=== PATIENT | male | born 1955 | race Caucasian/White ===

== ENCOUNTER 2018-05-04 13:02 | Outpatient (CLI) | payer BC ==
--- NOTE | 2018-05-04 15:49 | RAD ---
CHEST PA AND LATERAL TWO VIEWS: History: 63-year-old male with history of pneumothorax following left rib fracture after a fall on 04-24-18 th chest wall injury. FINDINGS: Two views of the chest demonstrate heart size to be within normal limits. Mild bilateral hyperinflati on. No confluent pneumonia, overt edema, pleural effusion or pneumothorax. There is evidence for a no ndisplaced left 7th rib fracture laterally. IMPRESSION: No significant intrathoracic disease. Mild bilateral hyperinflation. No pneumothorax or pleural effus ion. Probable nondisplaced left 7th lateral rib fracture. POS: [facility]
--- NOTE | 2018-05-04 15:51 | RAD ---
AP AND OBLIQUE VIEWS LEFT RIBS: History: Pneumothorax follow up. FINDINGS: There are what may be areas of subtle rib fractures of the left 7th and 8th ribs. No pneumothorax is seen. IMPRESSION: Findings concerning for subtle left 7th and 8th rib fractures. POS: [facility]
== END 2018-05-04 13:03 | disposition home or self-care (01) ==
LOC: BICRAD 13:02
PROVIDERS: ATTEND Internal Medicine
DX: J93.9 Pneumothorax, unspecified (principal)
CPT/HCPCS: 71046

== ENCOUNTER 2020-04-03 14:42 | Outpatient (CLI) | payer BC ==
[~2020-04-03 14:42] MED LIST: Magnevist 469MG/ML 20 ML VIAL ONE
[2020-04-03 15:08] LABS: Estimated GFR-MDRD - POC Greater than 90
--- NOTE | 2020-04-03 16:26 | MRI ---
MULTI PARAMETRIC MRI OF THE PELVIS (PROSTATE) WITH AND WITHOUT IV CONTRAST WITH REVIEW ON INDEPENDENT 3-D WORKSTATION: HISTORY: Elevated PSA. Prostate biopsy performed 6-8 weeks ago. COMPARISON: None FINDINGS: PROSTATE: The prostate gland measures [id number] with a volume of 31 cc. PERIPHERAL ZONE: No focal abnormal areas of restricted diffusion is seen to suggest malignant process . TRANSITIONAL ZONE: No lentiform area of abnormally decreased T2 signal is seen to suggest a malignant process. No focal arterial enhancing mass is seen. Prostatic capsule is intact. The seminal vesicles are intact. LYMPH NODES: No lymphadenopathy is seen. SOFT TISSUES: Pelvic sidewall is normal. There is sigmoid diverticulosis. The urinary bladder wall is thickened with a right-sided small bladder diverticulum. BONES: No abnormal areas of signal replacement on the T1-weighted sequences are seen to suggest osseo us metastatic disease. IMPRESSION: PI-RADS 2: Low (clinically significant prostate cancer is unlikely to be present).
== END 2020-04-03 14:43 | disposition home or self-care (01) ==
LOC: TBSIIMAG 14:42
PROVIDERS: ATTEND Urology
DX: R97.20 Elevated prostate specific antigen [PSA] (principal)
CPT/HCPCS: 72197; 82565; A9579

== ENCOUNTER 2022-01-16 08:26 | Outpatient (CLI) | payer MEDICARE, BC ==
[2022-01-16] MEDS ORDERED: Gadobenate Dimeglumine 529 MG/1 ML (20ML VIAL) ONE (14:29)
== END 2022-01-16 08:27 | disposition home or self-care (01) ==
LOC: TBSIIMAG 08:26
PROVIDERS: ATTEND Urology
DX: C61 Malignant neoplasm of prostate (principal)
CPT/HCPCS: 72197; 82565; A9577

== ENCOUNTER 2024-05-21 09:54 | Outpatient (CLI) | payer MEDICARE ==
[2024-05-21 12:13] LABS: #Basophils 0.04 10x3/uL (0.0-0.2); %Basophils 0.6 % (0.0-1.0); %Eosinophils 1.8 % (0.0-10.0); %Lymphocytes 28.3 % (21.0-51.0); %Monocytes 9.1 % (0.0-10.0); %Neutrophils 59.9 % (42.0-75.0); Hematocrit 48.6 % (42.0-52.0); Hemoglobin 16.4 g/dL (14.0-18.0); Mean Corpuscular HGB CONC 33.7 g/dL (32.0-36.0); Mean Corpuscular Hemoglobin 30.3 pg (27.0-31.0); Mean Corpuscular Volume 89.7 fL (78.0-98.0); Platelet Count 191 10x3/uL (130-400); RBC Distribution Width 12.7 % (11.5-14.5); Red Blood Cell (RBC) Count 5.42 mill/uL (4.70-6.10)
[2024-05-21 12:17] LABS: Bacteria/HPF None Seen HPF (None Seen); Bilirubin Negative (Negative); Blood, Urine Negative (Negative); Clarity Clear (Clear); Glucose, Urine (Dipstick) Normal (Negative); Ketone, Urine Negative (Negative); Leukocyte Negative Leu/uL (Negative); Nitrite Negative (Negative); Protein, Urine (Dipstick) Negative (Neg-Trace); RBC/HPF 0-3 HPF (0-3); Specific Gravity, Urine 1.005 (1.002-1.036); Squamous Epithelial None Seen HPF (0-3); Urobilinogen Normal mg/dL (Less than 2); WBC/HPF None Seen HPF (0-3)
[2024-05-21 12:22] LABS: INR-International Normal Ratio 1.1; PTT 30.2 sec (22.9-36.1); Prothrombin Time 13.7 sec (12.0-14.7)
[2024-05-21 12:26] LABS: Anion Gap 12 mmol/L (10-20); BUN (Urea Nitrogen) 16 mg/dL (8.4-25.7); Calc. Creatinine Clearance 0 mL/min (70-130); Calcium 9.5 mg/dL (7.8-10.44); Carbon Dioxide 29 mmol/L (23-31); Chloride 101 mmol/L (98-107); Estimated GFR 95; Glucose 88 mg/dL (80-115); Potassium 3.7 mmol/L (3.5-5.1); Sodium 138 mmol/L (136-145)
== END 2024-05-21 09:55 | disposition home or self-care (01) ==
LOC: LABBT 09:54
PROVIDERS: ATTEND Urology
DX: Z01.818 Encounter for other preprocedural examination (principal); C61 Malignant neoplasm of prostate; N52.9 Male erectile dysfunction, unspecified; R39.12 Poor urinary stream; N40.1 Benign prostatic hyperplasia with lower urinary tract symptoms
CPT/HCPCS: 80048; 81001; 85025; 85610; 85730; 87086; 93005; 93010

== ENCOUNTER 2024-06-04 05:46 | Day surgery (SDC) | payer MEDICARE ==
[2024-05-21 10:14] VITALS: BMI 23.0
[2024-06-04] MEDS ORDERED: cefTRIAXone (ROCEPHIN) 1 GM VIAL ONE (06:49)
[2024-06-04] MEDS ORDERED: Sodium Chloride 0.9% 100 ML ONE (06:49)
[2024-06-04] MEDS ORDERED: PROPOFOL 20 ML ONE ×2 (07:14→08:21)
[2024-06-04] MEDS ORDERED: Midazolam HCl 2 mg/2 ml Vial ONE ×2 (07:15→08:21)
[2024-06-04] MEDS ORDERED: fentaNYL 50 mcg/mL 1 mL Vial ONE ×2 (07:49→08:21)
[2024-06-04] MEDS ORDERED: ePHEDrine Sulfate 50 MG/10 ML VIAL ONE (07:57)
== END 2024-06-04 09:20 | disposition home or self-care (01) ==
LOC: SDC 05:46
PROVIDERS: ATTEND Urology
PROC: 0VB03ZX Excision of Prostate, Percutaneous Approach, Diagnostic (ICD-10-PCS; principal; 2024-06-04)
DX: C61 Malignant neoplasm of prostate (principal); I10 Essential (primary) hypertension; N40.1 Benign prostatic hyperplasia with lower urinary tract symptoms; R39.12 Poor urinary stream; N52.9 Male erectile dysfunction, unspecified
CPT/HCPCS: 55700; 76498; J0696; J2250; J2704; J3010; G0416